=== PATIENT | female | born 1950 | race Asian ===

== ENCOUNTER 2019-11-15 19:06 | Emergency (ER) | payer MEDICARE ==
[~2019-11-15] VITALS: Ht 165.1 cm; Wt 60.8 kg
--- NOTE | 2019-11-15 19:24 | NUR ---
PT CAME FROM HOME W/ TO ER BED 11 C/O LEFT ARM PAIN. PT STATES SHE FELL ON HER LEFT ARM BY TRIPPING OVER THE TUBING OF THE VACUUM IMMUNOLOGIST. RADIAL PULSES STRONG AND EQUAL BILATERALLY . PT ABLE TO WRIGGLE FINGERS, AND MOVE WRIST. AAOX4. NO SOB. BREATHING EVENLY AND UNLABORED ON ROOM AIR. CONNECTED TO MONITOR. AT BEDSIDE
[2019-11-15] MEDS ORDERED: HYDROCODONE/APAP 5/325MG 1 EACH TABLET ONE ×2 (19:51→19:55)
[2019-11-15] MEDS ORDERED: HYDROCODONE/APAP 5/325MG 1 EACH TABLET PO ONE (20:00)
--- NOTE | 2019-11-15 20:02 | NUR ---
XRAY AT BEDSIDE
--- NOTE | 2019-11-15 21:26 | NUR ---
Patient discharged to home in stable condition. Written and verbal after care instructions given. Patient verbalizes understanding of instruction.
[2019-11-15 21:27] VITALS: BP 144/78
== END 2019-11-15 21:28 | disposition home or self-care (01) ==
LOC: ER 19:17
DX: S42.392A Other fracture of shaft of left humerus, initial encounter for closed fracture (principal); I10 Essential (primary) hypertension; W01.0XXA Fall on same level from slipping, tripping and stumbling without subsequent striking against object, initial encounter; Y93.89 Activity, other specified; Y92.89 Other specified places as the place of occurrence of the external cause; Y99.8 Other external cause status
CPT/HCPCS: 73060-TC